=== PATIENT | female | born 1985 | race Hispanic/Latino ===

== ENCOUNTER 2017-02-26 10:03 | Outpatient (CLI) | payer OTHER ==
--- NOTE | 2017-02-26 14:03 | Ultrasound Report ---
LEFT BREAST ULTRASOUND: 02/26/17 10:03:00 CLINICAL: Left breast pain. She reportedly has had a recent negative mammogram done elsewhere. COMPARISON: None. FINDINGS: Ultrasound of the left breast(including all four quadrants and the retroareolar area) was performed and demonstrated moderate retroareolar ductal ectasia but no intraductal mass. No mass, shadowing or cysts. IMPRESSION: Benign duct ectasia and otherwise negative. BI-RADS 2 - - Benign RECOMMENDATION: Clinical followup and routine mammographic screening based on ACAS guidelines.
== END 2017-02-26 10:04 | disposition home or self-care (01) ==
LOC: SPVWC 10:03
PROVIDERS: ATTEND Family Medicine
DX: N60.42 Mammary duct ectasia of left breast (principal)

== ENCOUNTER 2018-10-27 11:17 | Observation (INO) | payer OTHER, MEDICAID ==
[2018-10-27] MEDS ORDERED: ZOFRAN IV PRN (11:25)
--- NOTE | 2018-10-27 11:25 | History and Physical Report ---
History of Present Illness Date of examination: 10/27/18 Date of admission: 10/27/18 Chief complaint: n/v History of present illness: Pt continues to have minimal relief on po meds stating she vomits and heaves for 2 hrs straight. Pt declined zofran and promethazine last week and has been taking reglan and diclegisis and state as long as meds are on board she is fine an able to tolerate po but when the meds are wearing off thenausea starts. States she is feeling weak at this time. I d/w admission for observation for hyperemsis and pt agrees. Past History Past Medical History: other (IBS-controlled on zofran usually) Past Surgical History: no surgical history [employer] History: denies: abnormal PAP smear Social history: no significant social history, - Obstetrical History Expected Date of Delivery: 06/10/19 Actual Gestation: 7 Week(s) 6 Day(s) : 2 Medications and Allergies Allergies Allergy/AdvReac Type Severity Reaction Status Date / Time No Known Allergies Allergy Verified 07/19/13 20:10 Home Medications Medication Instructions Recorded Confirmed Last Taken Type Omeprazole [Prilosec] 20 mg PO QDAY 07/19/13 07/19/13 07/17/13 History Pnv95/Ferrous Fumarate/FA 1 tab PO DAILY 07/19/13 07/19/13 07/18/13 History [ Vitamins] Lidocain2.5%/Prilocai2.5% [Emla] 5 gm TP ONCE #1 tube 07/20/13 Unknown Rx Ferrous Sulfate [Feosol 325 MG tab] 325 mg PO BID #60 tablet 07/21/13 Unknown Rx Ibuprofen [Motrin 600 MG tab] 800 mg PO Q6H PRN #30 tablet 07/21/13 Unknown Rx Doxylamine Succinate/Vit B6 1 each PO QHS #100 tablet. 10/28/18 Unknown Rx [Anay Cardona 10-10 mg Tablet] Promethazine [Phenergan] 25 mg PO Q6HR PRN #30 tab 10/28/18 Unknown Rx Review of Systems All systems: negative - Physical Exam Cardiovascular: Normal S1, Normal S2 Lungs: Positive: Clear to auscultation, Normal air movement Abdomen: Positive: normal appearance, soft. Negative: distention, tenderness, guarding Genitourinary (Female): Positive: other (deferred was normal last week on exam) Extremities: Positive: normal. Negative: tenderness, edema Deep Tendon Reflex Grade: Normal +2 - Obstetrical FHR: other (FCA noted on office sonogram) Results Result Diagrams: 10/27/18 13:28 10/27/18 13:27 All other labs normal. Assessment and Plan - Patient Problems (1) Hyperemesis affecting , antepartum Current Visit: No Status: Acute Plan to address problem: -hyperemesis pathway -obs for now -d/c home in am if improved and labs are normal. (2) 7 weeks gestation of Current Visit: No Status: Acute
[2018-10-27] MEDS ORDERED: D5LR 1,000 ML IV SCH (12:00)
[2018-10-27 13:38] LABS: Basophils # (Auto) 0.1 K/mm3 (0.0-0.1); Basophils % (Auto) 0.6 % (0.0-1.8); Eosinophils # (Auto) 0.1 K/mm3 (0.0-0.4); Eosinophils % (Auto) 1.3 % (0.0-4.3); Hematocrit 40.3 % (30.3-42.9); Lymphocytes # (Auto) 1.4 K/mm3 (1.2-5.4); Lymphocytes % (Auto) 13.1 % (13.4-35.0); Mean Corpuscular HGB Conc 35 % (30-34); Mean Corpuscular Volume 98 fl (79-97); Monocytes # (Auto) 0.7 K/mm3 (0.0-0.8); Monocytes % (Auto) 6.3 % (0.0-7.3); Platelet Count 249 K/mm3 (140-440); Red Blood Count 4.11 M/mm3 (3.65-5.03); Red Cell Distribution Width 12.8 % (13.2-15.2)
[2018-10-27 13:58] LABS: BUN/Creatinine Ratio 15; Blood Urea Nitrogen 6 mg/dL (7-17); Calcium 9.3 mg/dL (8.4-10.2); Hemolysis Index 13
[2018-10-27] MEDS: REGLAN IV SCH ×2 (14:25→20:52)
[2018-10-27] MEDS: PHENERGAN PR SCH ×2 (14:26→20:54)
[2018-10-27] MEDS: D5LR 1,000 ML IV SCH ×3 (15:32→22:59)
[2018-10-27 17:57] LABS: Bilirubin,Urine NEG (Negative); Blood,Urine NEG (Negative); Color,Urine Colorless (Yellow); Protein,Urine <15 mg/dL mg/dL (Negative); RBC,Urine < 1.0 /HPF (0.0-6.0); Urobilinogen,Urine < 2.0 mg/dL (<2.0); WBC,Urine < 1.0 /HPF (0.0-6.0)
[2018-10-27] MEDS ORDERED: TYLENOL PO PRN (20:25)
[2018-10-28] MEDS: REGLAN IV SCH (03:42)
[2018-10-28] MEDS: PHENERGAN PR SCH ×2 (03:42→11:27)
[2018-10-28] MEDS: D5LR 1,000 ML IV SCH (06:07)
--- NOTE | 2018-10-28 07:48 | Discharge Summary ---
Providers - Providers Date of Admission: 10/27/18 12:48 Date of discharge: 10/28/18 (pt desires d/c home) Attending physician: REMIGIO MOSER Primary care physician: S[employer]IOR [employer]ELOPER Hospitalization Reason for admission: hyperemesis Condition: Good Pertinent studies: potassium 4.0, Ketones negative Procedures: management of excessive nausea and vomiting associated with Hospital course: management of excessive nausea and vomiting associated with Disposition: DC-01 TO HOME OR SELFCARE - Discharge Diagnoses (1) Hyperemesis affecting , antepartum Status: Acute Core Measure Documentation - Palliative Care Palliative Care/ Comfort Measures: Not Applicable - Core Measures Any of the following diagnoses?: none Exam - Constitutional Vitals: Temp Pulse Resp BP Pulse Ox 98.7 F 74 18 99/62 100 10/28/18 04:00 10/28/18 04:00 10/28/18 04:00 10/28/18 04:00 10/27/18 13:24 General appearance: Present: no acute distress, well-nourished - EENT Eyes: Present: PERRL ENT: hearing intact, clear oral mucosa - Neck Neck: Present: supple, normal ROM - Respiratory Respiratory effort: normal Respiratory: bilateral: CTA - Cardiovascular Heart Sounds: Present: S1 & S2. Absent: rub, click - Extremities Extremities: pulses symmetrical, No edema Peripheral Pulses: within normal limits - Abdominal General gastrointestinal: Present: soft, non-tender, non-distended, normal bowel sounds Female genitourinary: Present: normal - Integumentary Integumentary: Present: clear, warm, dry - Musculoskeletal Musculoskeletal: gait normal, strength equal bilaterally - Psychiatric Psychiatric: appropriate mood/affect, intact judgment & insight - Neurologic Neurologic: CNII-XII intact, moves all extremities - Additional findings Additional findings: no vaginal bleeding Plan Activity: no restrictions Diet: other (bland diet, sip clear liquids all day) Follow up with: PRIMARY CARE, [Primary Care Provider] - 7 Days REMIGIO MOSER MD [Staff Physician] - 14 Days (Take medication as ordered for nausea. follow up in office in 2 weeks or sooner if needed. ) Prescriptions: Doxylamine Succinate/Vit B6 [Anay Cardona 10-10 mg Tablet] 1 each PO QHS #100 tablet. Promethazine [Phenergan] 25 mg PO Q6HR PRN #30 tab PRN Reason: Nausea
[2018-10-28 09:27] VITALS: BP 99/58
[2018-10-28] MEDS ORDERED: PRENATAL VITAMIN PO SCH (10:00)
== END 2018-10-28 11:45 | disposition home or self-care (01) ==
LOC: UNDOADMIN 11:17 → 3A 11:17 → PREINTOOBSV 11:46 → OB 12:48
PROVIDERS: ADMIT Obstetrics & Gynecology; ATTEND Obstetrics & Gynecology
DX: O21.0 Mild hyperemesis gravidarum (principal); O09.521 Supervision of elderly multigravida, first trimester; Z3A.01 Less than 8 weeks gestation of pregnancy
CPT/HCPCS: 36415; 80048; 81001; 85025; 96374; 96376; G0378; G0379; J2765; J7121

== ENCOUNTER 2019-06-12 20:53 | Outpatient (CLI) | payer MEDICAID, OTHER ==
[2019-06-12 21:09] VITALS: BP 113/66
[2019-06-12] MEDS ORDERED: BICITRA ORAL LIQD 30ML PO STA (21:21)
== END 2019-06-12 21:53 | disposition home or self-care (01) ==
LOC: TRG 20:53
PROVIDERS: ATTEND Obstetrics & Gynecology
DX: O47.1 False labor at or after 37 completed weeks of gestation (principal); Z3A.40 40 weeks gestation of pregnancy
CPT/HCPCS: 59025; Q0177